=== PATIENT | female | born 1945 | race Caucasian/White ===

== ENCOUNTER 2017-08-29 23:43 | Emergency (ER) | payer BC ==
[2017-08-30] MEDS ORDERED: DOXYcycline CAP(*) 100 MG PO ONE (02:16)
--- NOTE | 2017-08-30 02:21 | ED ---
Bite Injury/Animal - HPI Summary HPI Summary: Pt is a 72 y/o F presenting w/ a tick bite. She reports removing the tick from her left axilla some time in the evening of 08/29/17 but believes the tick bit her sometime in the past 24 hours. She reports the affected area still feels irritated. Pain is rated 3/10 on triage. She reports NKDA and denies any other medical problems. - History of Current Complaint Chief Complaint: EDRashSkinAbscess Stated Complaint: TICK BITE Time Seen by Provider: 08/30/17 02:05 Hx Obtained From: Patient Onset of Injury: Happened hours ago - some time in the past 24 hours Type of Bite: Animal - tick Severity Currently: Mild Pain Intensity: 3 Pain Scale Used: 0-10 Numeric - 3/10 Aggravating Factor(s): Nothing Alleviating Factor(s): Nothing - Allergies/Home Medications Allergies/Adverse Reactions: Allergies Allergy/AdvReac Type Severity Reaction Status Date / Time No Known Allergies Allergy Verified 08/29/17 23:48 PMH/Surg Hx/FS Hx/Imm Hx Respiratory History: Reports: Hx Sleep Apnea Sensory History: Denies: Hx Legally Blind - Cancer History Hx Chemotherapy: No Hx Radiation Therapy: No Infectious Disease History: No Infectious Disease History: Denies: Traveled Outside the [place] in Last 30 Days - Family History Known Family History: Negative: Blood Disorder - Social History Alcohol Use: None Hx Substance Use: No Substance Use Type: Reports: None Hx Tobacco Use: No Smoking Status (MU): Never Smoked Tobacco Review of Systems Negative: Fever Positive: Other - tick bite on left axilla causing mild irritation All Other Systems Reviewed And Are Negative: Yes Physical Exam - Summary Physical Exam Summary: Appearance: Well-appearing, Well-nourished, lying in bed comfortably Skin: Warm, dry, small red area left axilla c/w recent tick bite Eyes: sclera anicteric, no conjunctival pallor ENT: mucous membranes moist, pharynx appears normal Neck: Supple, nontender Respiratory: no signs of respiratory distress Cardiovascular: well perfused Abdomen: deferred Musculoskeletal: Normal, Strength/ROM Intact Neurological: A&Ox3, awake and alert, mentation is normal, speech is fluent and appropriate Psychiatric: affect is normal, does not appear anxious or depressed Triage Information Reviewed: Yes Vital Signs On Initial Exam: Initial Vitals Temp Pulse Resp BP Pulse Ox 97.5 F 68 15 111/67 100 08/29/17 23:48 08/29/17 23:48 08/29/17 23:48 08/29/17 23:48 08/29/17 23:48 Vital Signs Reviewed: Yes Diagnostics - Vital Signs Vital Signs Temp Pulse Resp BP Pulse Ox 08/29/17 23:48 97.5 F 68 15 111/67 100 - Laboratory Lab Statement: Any lab studies that have been ordered have been reviewed, and results considered in the medical decision making process. Bite Injury Course/Dx - Diagnoses Provider Diagnosis: Tick bite of axillary region Discharge - Sign-Out/Discharge Documenting (check all that apply): Patient Departure - Discharge Plan Condition: Good Disposition: HOME Patient Education Materials: Tick Bite (ED) Referrals: Jose Manuel Powell [employer] [Primary Care Provider] - - Billing Disposition and Condition Condition: GOOD Disposition: Home
[2017-08-30 02:55] VITALS: BP 117/64
== END 2017-08-30 02:54 | disposition home or self-care (01) ==
LOC: ED 23:43
DX: S40.862A Insect bite (nonvenomous) of left upper arm, initial encounter (principal); W57.XXXA Bitten or stung by nonvenomous insect and other nonvenomous arthropods, initial encounter; Y92.9 Unspecified place or not applicable
CPT/HCPCS: 99282; A9270-GY

== ENCOUNTER 2018-05-14 22:18 | Emergency (ER) | payer MEDICARE, BC ==
--- NOTE | 2018-05-14 23:51 | ED ---
Bite Injury/Animal - HPI Summary HPI Summary: 72-year-old female presents to tick bite to right thigh. She states that she noticed last night. She was given a dose of doxycycline by her primary today. States she would like the tick removed. No fevers or spreading redness. - History of Current Complaint Chief Complaint: EDRashSkinAbscess Stated Complaint: I CANT GET THIS TICK OUT OF MY LEG PER PT Time Seen by Provider: 05/14/18 23:42 Pain Intensity: 0 - Allergies/Home Medications Allergies/Adverse Reactions: Allergies Allergy/AdvReac Type Severity Reaction Status Date / Time No Known Allergies Allergy Verified 05/14/18 22:25 PMH/Surg Hx/FS Hx/Imm Hx Endocrine/Hematology History: Denies: Hx Anticoagulant Therapy Cardiovascular History: Denies: Hx Pacemaker/ICD Respiratory History: Reports: Hx Sleep Apnea Sensory History: Denies: Hx Legally Blind Opthamlomology History: Denies: Hx Legally Blind - Cancer History Hx Chemotherapy: No Hx Radiation Therapy: No Infectious Disease History: No Infectious Disease History: Denies: Traveled Outside the [place] in Last 30 Days - Family History Known Family History: Positive: None Negative: Blood Disorder - Social History Alcohol Use: None Hx Substance Use: No Substance Use Type: Reports: None Hx Tobacco Use: No Smoking Status (MU): Never Smoked Tobacco Review of Systems Negative: Fever Negative: Chest Pain Negative: Shortness Of Breath Positive: Other - tick bite right thigh All Other Systems Reviewed And Are Negative: Yes Physical Exam Triage Information Reviewed: Yes Vital Signs On Initial Exam: Initial Vitals Temp Pulse Resp BP Pulse Ox 97.6 F 76 16 121/71 100 05/14/18 22:20 05/14/18 22:20 05/14/18 22:20 05/14/18 22:20 05/14/18 22:20 Vital Signs Reviewed: Yes Appearance: Positive: Well-Appearing Skin: Positive: Warm, Dry, Other - tick bite on Respiratory/Lung Sounds: Positive: Clear to Auscultation, Breath Sounds Present Cardiovascular: Positive: Normal, RRR Musculoskeletal: Positive: Normal Neurological: Positive: Normal Psychiatric: Positive: Normal Diagnostics - Vital Signs Vital Signs Temp Pulse Resp BP Pulse Ox 05/14/18 22:20 97.6 F 76 16 121/71 100 - Laboratory Lab Statement: Any lab studies that have been ordered have been reviewed, and results considered in the medical decision making process. Bite Injury Course/Dx - Course Course Of Treatment: 72-year-old female presents to tick bite to right thigh. She states that she noticed last night. She was given a dose of doxycycline by her primary today. States she would like the tick removed. No fevers or spreading redness. On exam has small tick present on right thigh. Removed with tweezers. Told to keep the area clean and can apply Neosporin. Patient understands agrees with plan. - Diagnoses Differential Diagnosis/HQI/PQRI: Positive: Other - tick, lyme Provider Diagnosis: Tick bite Discharge - Sign-Out/Discharge Documenting (check all that apply): Patient Departure Patient Received Moderate/Deep Sedation with Procedure: No - Discharge Plan Condition: Stable Disposition: HOME Patient Education Materials: Tick Bite (ED) Referrals: Jose Manuel Powell [employer] [Primary Care Provider] - Additional Instructions: Return to ED if develop any new or worsening symptoms - Billing Disposition and Condition Condition: STABLE Disposition: Home
[2018-05-15] VITALS: BP 108/71
== END 2018-05-15 | disposition home or self-care (01) ==
LOC: ED 22:18
DX: S70.361A Insect bite (nonvenomous), right thigh, initial encounter (principal); W57.XXXA Bitten or stung by nonvenomous insect and other nonvenomous arthropods, initial encounter; Y92.9 Unspecified place or not applicable
CPT/HCPCS: 99281